=== PATIENT | male | born 1980 | race Caucasian/White ===

== ENCOUNTER 2018-04-03 12:12 | Emergency (ER) | payer OTHER, BC ==
[2018-04-03 12:33] VITALS: BP 141/115
--- NOTE | 2018-04-03 12:55 | EDM.PDOC ---
ED HPI GENERAL MEDICAL PROBLEM - General Chief Complaint: Upper Extremity Injury/Pain Stated Complaint: SHOULDER PAIN Time Seen by Provider: 04/03/18 12:30 Source of Information: Reports: Patient History Limitations: Reports: No Limitations - History of Present Illness INITIAL COMMENTS - FREE TEXT/NARRATIVE: 37 year old male presents for evaluation and treatment of right should pain. Initial injury occurred last week. Patient reports he was helping a coworker lift a heavy object when he developed pain to his right shoulder. He was seen by occupational health last week and Sunday. States he was told the pain was from his neck. He seen by a chiropractor yesterday. He has not had any imaging of his shoulder. Has been treating with Tylenol and Motrin. Patient reports last night he was lifting up his 5-year-old child when he heard a pop and a crunch in the right shoulder. He states he's been experiencing numbness in his hand and elbow. He is pain reporting pain primarily to his right shoulder. Denies any previous injury to his right shoulder. Review of the patient's records show he was seen about 4 years ago for a right shoulder injury and found to have a greater tuberosity fracture to the right proximal humerus. Duration: Week(s): (1) Location: Reports: Upper Extremity, Right Treatments INCIDENT ANALYST: Reports: Other (see below) Other Treatments INCIDENT ANALYST: tylenol Right Shoulder Pain Score (Numeric/FACES): 8 - Related Data Allergies Allergy/AdvReac Type Severity Reaction Status Date / Time No Known Allergies Allergy Verified 08/15/14 18:46 Home Meds: Home Meds Orphenadrine [Norflex] 100 mg PO BID PRN #20 tab 04/03/18 [Rx] Past Medical History - Past Health History Medical/Surgical History: Denies Medical/Surgical History Musculoskeletal History: Reports: Back Pain, Chronic, Fracture Other Musculoskeletal History: fractured shoulder and did not have surgery Psychiatric History: Reports: Anxiety Social & Family History - Family History Family Medical History: Noncontributory - Tobacco Use Smoking Status *Q: Current Every Day Smoker Years of Tobacco use: 15 Packs/Tins Daily: 0.2 - Caffeine Use Caffeine Use: Reports: None - Recreational Drug Use Recreational Drug Use: No Review of Systems - Review of Systems Review Of Systems: See Below Musculoskeletal: Reports: Shoulder Pain (right) Neurological: Reports: Numbness (right arm), Tingling (right arm) ED EXAM, GENERAL - Physical Exam Exam: See Below Exam Limited By: No Limitations General Appearance: Alert, WD/WN, No Apparent Distress Respiratory/Chest: No Respiratory Distress Cardiovascular: Normal Peripheral Pulses, Regular Rate, Rhythm Peripheral Pulses: 2+: Radial (L), Radial (R) Extremities: Normal Inspection (no obvious deformity, tenderness to palpation to the distal clavicle), Normal Capillary Refill, Limited Range of Motion ( unable to forward flex greater than 30 decress, unable to extend, unable to abduct more than 30 degrees; special testing deferred due to pain), Other ( tenderness to palpatino to the right distal clavicle and the proximal humerus; reports good sensation to light tought tothe right arm) Neurological: Alert, Oriented, Normal Cognition Psychiatric: Normal Affect, Normal Mood Skin Exam: Warm, Dry, Normal Color Course - Vital Signs Last Recorded V/S: Last Vital Signs Temp 97.6 F 04/03/18 12:31 Pulse 107 H 04/03/18 12:31 Resp 20 04/03/18 12:31 BP 141/115 H 04/03/18 12:31 Pulse Ox 97 04/03/18 12:31 - Orders/Labs/Meds Orders: Active Orders 24 hr Category Date Time Status Durable Medical Equipment for Discharge [DME for Oth 04/03/18 13:17 Ordered Discharge] [COMM] Stat - Radiology Interpretation Free Text/Narrative:: xray of the right shoulder shows no acute fractures or dislocations. Reviewed by myself and Dr. Tipton. Formal radiology read pending. - Re-Assessments/Exams Free Text/Narrative Re-Assessment/Exam: 04/03/18 13:12 Reviewed the xray results with the patient. Concern he may have a labrial tear or rotator cuff tear due to significant pain with ROM. Will place in a shoulder sling and have him follow-up with orthopedics. Discharge instructions as documented. Departure - Departure Time of Disposition: 13:19 Disposition: Home, Self-Care 01 Condition: Fair Clinical Impression: Shoulder injury - Discharge Information *PRESCRIPTION DRUG MONITORING PROGRAM REVIEWED*: No *COPY OF PRESCRIPTION DRUG MONITORING REPORT IN PATIENT JAIME: No Prescriptions: Orphenadrine [Norflex] 100 mg PO BID PRN #20 tab PRN Reason: Muscle Spasm Instructions: RICE for Routine Care of Injuries, [id number], Shoulder Pain, [id number] Referrals: PCP,None [Primary Care Provider] - Jason Chase MD [Physician] - Forms: ED Department Discharge, ED Return to Work/School Form Additional Instructions: OTC tylenol or motrin as needed for pain. Norflex 1 tab PO bid prn muscle pain and spasms. This medication may make you drowsy. Do not drive or operate machinery until you know how this medication will affect you. Follow-up with orthopedics this week or next week. Recommend Dr. Cahse. Call [phone] to schedule with him. Or Dr. Griffin, call [phone] to schedule with him. Should sling at all times. remove your arm from sling 3-4 times a day and preform pendulum arm circles to prevent frozen shoulder. Ice or heat to the shoulder as needed for additional pain relief. Please return to the ER should your symptoms change or worsen. - My Orders Last 24 Hours: My Active Orders 04/03/18 13:17 Durable Medical Equipment for Discharge [DME for Discharge] [COMM] Stat - Assessment/Plan Last 24 Hours: My Active Orders 04/03/18 13:17 Durable Medical Equipment for Discharge [DME for Discharge] [COMM] Stat
--- NOTE | 2018-04-03 14:15 | CR ---
Right shoulder: Three views of the right shoulder were obtained. Comparison: Prior right shoulder study of 06/11/14. Greater tuberosity is missing compatible with old fracture deformity. Glenohumeral joint is within normal limits. Joint space narrowing and inferior spurring is seen within the acromioclavicular joint. Inferior spurring is more prominent than on prior exam. No additional abnormality is noted. Impression: 1. Joint space narrowing and inferior spurring within the acromioclavicular joint. 2. Deformity of the greater tuberosity is missing compatible with old fracture deformity. Diagnostic code #3
== END 2018-04-03 13:41 | disposition home or self-care (01) ==
LOC: JD.ED 12:12
DX: S49.91XA Unspecified injury of right shoulder and upper arm, initial encounter (principal); F17.210 Nicotine dependence, cigarettes, uncomplicated; X50.0XXA Overexertion from strenuous movement or load, initial encounter; Y99.0 Civilian activity done for income or pay
CPT/HCPCS: 73030-26-RT; 73030-RT; 99283

== ENCOUNTER 2021-01-11 13:08 | Emergency (ER) | payer BC, OTHER ==
[2021-01-11] MEDS ORDERED: Metoclopramide 10 MG/2 ML SDV IVPUSH ONE (13:11)
[2021-01-11] MEDS ORDERED: fentaNYL 100 MCG/2 ML SDV IVPUSH ONE (13:11)
[2021-01-11] MEDS ORDERED: Dextrose 5%-0.9% NaCl 1,000 ML IV SCH (13:15)
[2021-01-11] MEDS ORDERED: Iopamidol 612 MG/ML 50 ML SDV IVPUSH ONE (13:17)
--- NOTE | 2021-01-11 13:17 | EDM.PDOC ---
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 they last longer than this or you have any problems with balance or blurred vision you should follow up with your primary care provider in a week's time. Sepsis Event Note (ED) - Focused Exam Vital Signs: Vital Signs Temp Pulse Resp BP Pulse Ox 01/12/21 07:13 97.4 F 94 16 136/74 93 L
[2021-01-11] MEDS ORDERED: Iopamidol 612 MG/ML 100 ML Bottle IVPUSH ONE (13:21)
[2021-01-11] MEDS ORDERED: Sodium Chloride 0.9% 10 ML Syringe FLUSH ONE (13:21)
--- NOTE | 2021-01-11 14:23 | CT ---
CT thoracic spine Technique: Multiple axial sections through the thoracic spine were obtained. Reconstructed coronal and sagittal images were obtained. Comparison: No prior thoracic spine imaging is available. Findings: Mild scattered disc space narrowing is noted within the thoracic spine. Minimal scattered endplate osteophytes are seen. Vertebral body heights are maintained. Mild scattered degenerative apophyseal change is seen. No fracture is seen. No bony central or bony neural foraminal stenosis is seen. Impression: 1. Mild degenerative change as noted above. 2. No acute fracture or abnormal subluxation is seen on CT study of the thoracic spine. Diagnostic code #2
--- NOTE | 2021-01-11 14:35 | CT ---
CT chest Technique: Multiple axial sections through the chest were obtained. Intravenous contrast was utilized. Mild artifact is noted from the patient's arm along his side. Comparison: Prior chest and right rib radiograph of 06/11/14. Findings: Thoracic aorta shows no aneurysm. Mediastinum shows no adenopathy. No pericardial thickening is seen. Lung window settings were reviewed which show no acute parenchymal change within either lung. No pleural effusions are seen. No pneumothorax is seen. Bone window settings were reviewed which show no acute osseous abnormality. Impression: 1. Nothing acute is seen on CT study of the chest. Diagnostic code #1 CT abdomen and pelvis Technique: Multiple axial sections were obtained from above the dome of the diaphragm inferiorly through the pubic symphysis. Intravenous contrast was utilized. No oral contrast has been given. Reconstructed coronal and sagittal images were obtained. Comparison: No prior CT abdomen or pelvis study is available. Findings: Liver shows no focal parenchymal abnormality. Spleen size is normal. Adrenal glands show no nodule. Pancreas shows no discrete abnormality. Kidneys show symmetric contrast enhancement with no hydronephrosis or mass. Gallbladder contains no calcified gallstones. Abdominal aorta shows no aneurysm. No retroperitoneal adenopathy is seen. No mesenteric abnormalities are seen. No pelvic mass or adenopathy is seen. No free fluid or inflammatory change is seen. Appendix is seen which is normal in size. Bone window settings were reviewed which show no acute osseous abnormality. Impression: 1. Nothing acute is seen on CT study of the abdomen and pelvis. Diagnostic code #1
--- NOTE | 2021-01-11 14:37 | CT ---
CT facial bones Technique: Multiple axial sections through the facial bones were obtained. Reconstructed coronal and sagittal images were obtained. Findings: Diffuse opacification of the frontal sinuses is seen. Diffuse opacification of the majority of the ethmoid sinuses and both maxillary sinuses is seen. Sphenoid sinus appears clear. No fluid is seen within the paranasal sinuses. No acute facial bone fracture is seen. Impression: 1. Findings compatible with diffuse chronic appearing sinusitis. 2. No acute fracture is seen on CT study of the facial bones. Diagnostic code #3
--- NOTE | 2021-01-11 14:42 | CT ---
CT lumbar spine Technique: Multiple axial sections were obtained through the lumbar spine. Reconstructed coronal and sagittal images were obtained. Comparison: Prior lumbar spine CT study of 08/15/14. Findings: Anterior wedge deformity is seen within the superior vertebral body of L3 which appears old. Mild scattered posterior disc space narrowing is noted. Mild degenerative change is seen within the L5-S1 apophyseal joints. No bony central canal stenosis is seen. Neural foramina are felt to be fairly well patent. Slight vacuum phenomena is seen within the L5-S1 disc. No fracture is seen. No abnormal subluxation is seen. Impression: 1. Mild degenerative change as noted above. Anterior wedge deformity within the superior L3 vertebral body which is old. 2. No acute fracture or abnormal subluxation is seen. Diagnostic code #2
--- NOTE | 2021-01-11 14:46 | CT ---
Head CT Technique: Multiple axial sections through the brain were obtained. Intravenous contrast was not utilized. Reconstructed coronal and sagittal images were obtained. Comparison: No prior intracranial imaging is available. Findings: Diffuse mucosal thickening is seen within the paranasal sinuses as described on facial bone exam. Slight basal ganglia calcification is noted. Small area of hemorrhage is seen within the right upper anterior parietal region which measures about 9 mm. Small calcification is seen along the interhemispheric falx which is old. No other areas of abnormal hemorrhage are seen. No midline shift or mass-effect is seen. Bone window settings were reviewed. Mild mucosal thickening is seen within the inferior right mastoid sinus. Left mastoid sinus is clear. Diffuse mucosal thickening within the paranasal sinuses are noted. No acute calvarial abnormality is appreciated. Scalp lesion is noted within the left parietal region measuring 1.6 cm which is believed to be benign. Impression: 1. Small hemorrhage within the upper right anterior parietal region. This measures about 9 mm in size. No other findings of intracranial hemorrhage are seen. 2. Paranasal sinus findings which are likely chronic. Mastoid sinus findings on the right side which are likely chronic. 3. Basal ganglia calcification is seen. Diagnostic code #3
--- NOTE | 2021-01-11 15:14 | CT ---
CT cervical spine Technique: Multiple axial sections were obtained from above C1 inferiorly to the bottom of T3. Reconstructed coronal and sagittal images were obtained. Comparison: No prior cervical spine imaging is available. Findings: Vertebral body heights are maintained. No bony central or bony neural foraminal stenosis is seen. Slight degenerative change is noted between the dens and anterior arch of C1. No fracture is seen. No abnormal subluxation is seen. Impression: 1. Minimal degenerative change. 2. No acute fracture or subluxation is seen on CT study of the cervical spine. Diagnostic code #2
[2021-01-11] MEDS ORDERED: Sodium Chloride 0.9% 10 ML Syringe FLUSH PRN (20:44)
[2021-01-11] MEDS ORDERED: LORazepam 2 MG/ML SDV IVPUSH ONE (22:30)
--- NOTE | 2021-01-12 11:29 | CT ---
Head CT Technique: Multiple axial sections through the brain were obtained. Intravenous contrast was utilized. Reconstructed coronal and sagittal images were obtained. Comparison: Prior head CT study of 01/11/21. Findings: Small area of hemorrhage is seen within the upper right anterior parietal region. This is slightly decreased in size from prior exam. Stable basal ganglia calcification is noted. Stable extradural calcification is seen along the interhemispheric falx. No other intracranial hemorrhage is seen. Diffuse mucosal thickening is seen within the paranasal sinuses. Scalp lesion is noted on the left side which is stable. Bone window settings were reviewed which show no acute calvarial abnormality. Minimal mucosal thickening is seen within the inferior right mastoid sinus. Impression: 1. Sinus findings which are stable as described above. 2. Slightly smaller hemorrhage within the upper right anterior parietal region. 3. Other stable findings as noted above. No other acute hemorrhage is seen. Diagnostic code #3
[2021-01-12 12:02] VITALS: BP 141/96; PULSE 97
== END 2021-01-12 12:00 | disposition home or self-care (01) ==
LOC: JD.ED 13:08
DX: S06.301A Unspecified focal traumatic brain injury with loss of consciousness of 30 minutes or less, initial encounter (principal); S13.4XXA Sprain of ligaments of cervical spine, initial encounter; S05.11XA Contusion of eyeball and orbital tissues, right eye, initial encounter; S00.11XA Contusion of right eyelid and periocular area, initial encounter; R94.31 Abnormal electrocardiogram [ECG] [EKG]; Z20.822 Contact with and (suspected) exposure to COVID-19; V29.9XXA Motorcycle rider (driver) (passenger) injured in unspecified traffic accident, initial encounter; Y92.410 Unspecified street and highway as the place of occurrence of the external cause
CPT/HCPCS: 36415; 70450; 70450-26; 70486; 70486-26; 71260; 71260-26; 72125; 72125-26; 72128; 72128-26; 72131; 72131-26; 74177; 74177-26; 80053; 80306; 80307; 82550; 83690; 83735; 85025; 85610; 85730; 86140; 93005; 93010; 96374; 96375; 99285; 99285-25; J2060; J2765; J3010; J7042; Q9967; U0002

== ENCOUNTER 2022-02-27 12:23 | Emergency (ER) | payer SELFPAY ==
[2022-02-27 13:35] LABS: CORONAVIRUS COVID-19 NAA NEGATIVE (NEGATIVE)
[2022-02-27 14:55] VITALS: BP 144/103; PULSE 88
== END 2022-02-27 14:55 | disposition home or self-care (01) ==
LOC: JD.ED 12:23
DX: J01.90 Acute sinusitis, unspecified (principal); Z20.822 Contact with and (suspected) exposure to COVID-19
CPT/HCPCS: 0241U; 99283

== ENCOUNTER 2022-08-17 16:02 | Emergency (ER) | payer SELFPAY ==
[2022-08-17 16:17] VITALS: BP 135/86; PULSE 109
[2022-08-17] MEDS ORDERED: Sodium Chloride 0.9% 10 ML Syringe FLUSH PRN (16:37)
[2022-08-17] MEDS ORDERED: Sodium Chloride 0.9% 1,000 ML IV SCH (16:45)
[2022-08-17 17:15] LABS: BASOPHILS ABSOLUTE AUTO 0.05 K/mm3 (0.01-0.08); BASOPHILS PERCENT AUTO 0.6 % (0.1-1.2); EOSINOPHILS ABSOLUTE AUTO 0.03 K/mm3 (0.04-0.54); EOSINOPHILS PERCENT AUTO 0.4 (0.8-7.0); HEMATOCRIT 46.1 % (40.1-51.0); IMMATURE GRAN ABSOLUTE AUTO 0.03 K/mm3 (0.00-0.10); IMMATURE GRAN PERCENT AUTO 0.4 % (<=1.0); LYMPHOCYTES ABSOLUTE AUTO 1.89 K/mm3 (1.32-3.57); LYMPHOCYTES PERCENT AUTO 24.3 % (21.8-53.1); MEAN CORPUSCULAR HGB CONC 34.7 g/dl (32.2-35.5); MEAN CORPUSCULAR VOLUME 89.3 fl (79.0-92.2); MEAN PLATELET VOLUME 10.6 fl (9.4-12.3); MONOCYTES ABSOLUTE AUTO 0.56 K/mm3 (0.30-0.82); MONOCYTES PERCENT AUTO 7.2 % (5.3-12.2); NEUTROPHILS ABSOLUTE AUTO 5.23 K/mm3 (1.78-5.38); NEUTROPHILS PERCENT AUTO 67.1 % (34.0-67.9); PLATELET COUNT,PLT 324 K/mm3 (163-337); RED BLOOD CELL COUNT 5.16 M/mm3 (4.63-6.08); WHITE BLOOD CELL COUNT,WBC 7.79 K/mm3 (4.23-9.07)
[2022-08-17 17:35] LABS: A/G RATIO 0.8 (1-2); ALBUMIN 3.5 g/dl (3.4-5.0); ANION GAP 15.1 (5-15); BILIRUBIN TOTAL 0.4 mg/dL (0.2-1.0); BUN/CREATININE RATIO 8.2 (14-18); CREATININE 1.1 mg/dL (0.7-1.3); EST CRCL DRUG DOSING (CG) 81.79 mL/min; ETHANOL BLOOD MEDICAL 0.31 gm% (0.00); POTASSIUM,K 4.1 mEq/L (3.5-5.1); PROTEIN TOTAL,TP 7.9 g/dl (6.4-8.2)
== END 2022-08-17 17:15 | disposition left against medical advice (07) ==
LOC: JD.ED 16:02
DX: S00.01XA Abrasion of scalp, initial encounter (principal); F10.920 Alcohol use, unspecified with intoxication, uncomplicated; W19.XXXA Unspecified fall, initial encounter; Y90.1 Blood alcohol level of 20-39 mg/100 ml
CPT/HCPCS: 36415; 80053; 80307; 85025; 99283; 99284

== ENCOUNTER 2023-09-12 04:57 | Emergency (ER) | payer SELFPAY ==
[2023-09-12] MEDS: QUEtiapine 25 MG Tab PO ONE (05:26)
[2023-09-12 05:29] LABS: BASOPHILS ABSOLUTE AUTO 0.1 K/mm3 (0.0-0.2); BASOPHILS PERCENT AUTO 0.7 % (0.0-1.0); EOSINOPHILS ABSOLUTE AUTO 0.1 K/mm3 (0.0-0.4); EOSINOPHILS PERCENT AUTO 1.1 % (0.0-6.0); HEMATOCRIT 41.8 % (42.0-52.0); HEMOGLOBIN 15.3 gm/dl (14.0-18.0); IMMATURE GRAN ABSOLUTE AUTO 0.03 K/mm3 (0.00-0.05); IMMATURE GRAN PERCENT AUTO 0.4 % (0.0-0.4); LYMPHOCYTES ABSOLUTE AUTO 1.7 K/mm3 (1.0-4.8); LYMPHOCYTES PERCENT AUTO 23.8 % (24.0-44.0); MEAN CORPUSCULAR HEMOGLOBIN 32.1 pg (28.0-32.0); MEAN CORPUSCULAR HGB CONC 36.6 g/dl (32.0-36.0); MEAN CORPUSCULAR VOLUME 87.6 fl (83.0-99.0); MEAN PLATELET VOLUME 10.7 fl (9.4-12.4); MONOCYTES ABSOLUTE AUTO 0.8 K/mm3 (0.0-0.8); MONOCYTES PERCENT AUTO 11.4 % (0.0-8.0); NEUTROPHILS ABSOLUTE AUTO 4.5 K/mm3 (1.8-7.7); NEUTROPHILS PERCENT AUTO 62.6 % (41.0-71.0); PLATELET COUNT,PLT 168 K/mm3 (150-400); RED BLOOD CELL COUNT 4.77 M/mm3 (4.52-5.90); WHITE BLOOD CELL COUNT,WBC 7.19 K/mm3 (3.9-11.3)
[2023-09-12 05:56] LABS: BARBITURATE SCREEN,URINE NEGATIVE (CUTOFF=200); BENZODIAZEPINES SCREEN,URINE NEGATIVE (CUTOFF=150); BUPRENORPHINE SCREEN,URINE NEGATIVE (CUTOFF=10); METHADONE SCREEN, URINE NEGATIVE (CUT0FF=200); METHAMPHETAMINES SCREEN, URINE NEGATIVE (CUTOFF=500); OXYCODONE SCREEN,URINE NEGATIVE (CUT0FF=100); THC SCREEN,URINE 20 NG/ML NEGATIVE (CUTOFF=50)
[2023-09-12 05:58] LABS: AMPHETAMINES SCREEN, URINE NEGATIVE (CUTOFF=500)
[2023-09-12 06:07] LABS: A/G RATIO 0.9 (1-2); ALBUMIN 3.8 g/dl (3.4-5.0); ANION GAP 16.5 (5-15); BILIRUBIN TOTAL 0.7 mg/dL (0.2-1.0); BUN/CREATININE RATIO 15.5 (14-18); CALCIUM 9.6 mg/dL (8.5-10.1); CREATININE 1.1 mg/dL (0.7-1.3); EST CRCL DRUG DOSING (CG) 80.96 mL/min; POTASSIUM,K 3.5 mEq/L (3.5-5.1); PROTEIN TOTAL,TP 8.2 g/dl (6.4-8.2); TSH 1.971 uIU/mL (0.358-3.74)
[2023-09-12 10:34] VITALS: BP 127/99; PULSE 101
== END 2023-09-12 10:12 | disposition home or self-care (01) ==
LOC: JD.ED 04:57
DX: R44.1 Visual hallucinations (principal); R44.0 Auditory hallucinations; F17.210 Nicotine dependence, cigarettes, uncomplicated
CPT/HCPCS: 36415; 80053; 80143; 80179; 80306; 80307; 84443; 85025; 99285; A9270; 99283

== ENCOUNTER 2024-06-29 16:06 | Day surgery (SDC) | payer BC ==
[2024-06-29 16:44] LABS: BASOPHILS ABSOLUTE AUTO 0.1 K/mm3 (0.0-0.2); BASOPHILS PERCENT AUTO 0.9 % (0.0-1.0); EOSINOPHILS ABSOLUTE AUTO 0.1 K/mm3 (0.0-0.4); EOSINOPHILS PERCENT AUTO 0.9 % (0.0-6.0); HEMATOCRIT 45.7 % (42.0-52.0); HEMOGLOBIN 16.1 gm/dl (14.0-18.0); IMMATURE GRAN ABSOLUTE AUTO 0.05 K/mm3 (0.00-0.05); IMMATURE GRAN PERCENT AUTO 0.5 % (0.0-0.4); LYMPHOCYTES ABSOLUTE AUTO 2.5 K/mm3 (1.0-4.8); LYMPHOCYTES PERCENT AUTO 25.1 % (24.0-44.0); MEAN CORPUSCULAR HEMOGLOBIN 31.8 pg (28.0-32.0); MEAN CORPUSCULAR HGB CONC 35.2 g/dl (32.0-36.0); MEAN CORPUSCULAR VOLUME 90.1 fl (83.0-99.0); MEAN PLATELET VOLUME 10.2 fl (9.4-12.4); MONOCYTES ABSOLUTE AUTO 0.7 K/mm3 (0.0-0.8); MONOCYTES PERCENT AUTO 6.6 % (0.0-8.0); NEUTROPHILS ABSOLUTE AUTO 6.6 K/mm3 (1.8-7.7); RED BLOOD CELL COUNT 5.07 M/mm3 (4.52-5.90); WHITE BLOOD CELL COUNT,WBC 10.03 K/mm3 (3.9-11.3)
[2024-06-29 16:48] LABS: PLATELET COUNT,PLT 253 K/mm3 (150-400)
[2024-06-29 17:12] LABS: A/G RATIO 0.8 (1-2); ALBUMIN 3.7 g/dl (3.4-5.0); ANION GAP 15.5 (5-15); BILIRUBIN TOTAL 0.4 mg/dL (0.2-1.0); BUN/CREATININE RATIO 6.9 (14-18); C-REACTIVE PROTEIN 0.18 mg/dL (<0.30); CALCIUM 8.6 mg/dL (8.5-10.1); CREATININE 1.3 mg/dL (0.7-1.3); EST CRCL DRUG DOSING (CG) 67.79 mL/min; POTASSIUM,K 3.5 mEq/L (3.5-5.1); PROTEIN TOTAL,TP 8.3 g/dl (6.4-8.2)
[2024-06-29] MEDS: LORazepam 2 MG/ML SDV IVPUSH ONE (17:46)
[2024-06-29] MEDS: Glucagon,Human Recombinant 1 MG Vial IVPUSH ONE (17:47)
[2024-06-29] MEDS: Sodium Chloride 0.9% 1,000 ML IV STA (18:39)
[2024-06-29] MEDS ORDERED: Sodium Chloride 0.9% 10 ML Syringe FLUSH PRN (18:52)
[2024-06-29] MEDS: Albuterol/Ipratropium 3.0-0.5 MG/3 ML Neb Soln NEB ONE (18:54)
[2024-06-29] MEDS ORDERED: propofoL 500 MG/50 ML 50 ML ONE (18:56)
[2024-06-29] MEDS: Albuterol/Ipratropium 3.0-0.5 MG/3 ML Neb Soln ONE (18:57)
[2024-06-29] MEDS ORDERED: fentaNYL 100 MCG/2 ML SDV ONE (18:57)
[2024-06-29] MEDS ORDERED: Lactated Ringers 1,000 ML IV ONE (18:57)
[2024-06-29] MEDS ORDERED: Midazolam 1 MG/ML 2 ML SDV ONE (18:57)
[2024-06-29] MEDS ORDERED: Lactated Ringers 1,000 ML IV SCH (19:00)
[2024-06-29] MEDS ORDERED: Succinylcholine 200 MG/10 ML MDV ONE (19:03)
[2024-06-29] MEDS ORDERED: Lidocaine 2% 5 ML SDV ONE (19:03)
[2024-06-29] MEDS ORDERED: Rocuronium 50 MG/5 ML Vial ONE (19:03)
[2024-06-29] MEDS ORDERED: Esmolol 100 MG/10 ML SDV ONE (19:21)
[2024-06-29] MEDS ORDERED: Sugammadex Sodium 200 MG/2 ML VIAL IV ONE (19:33)
[2024-06-29] MEDS ORDERED: Ondansetron 4 MG/2 ML SDV IVPUSH PRN (20:03)
[2024-06-29] MEDS ORDERED: fentaNYL 100 MCG/2 ML SDV IVPUSH PRN (20:03)
[2024-06-29] MEDS ORDERED: HYDROmorphone 0.5 MG/0.5 ML Syringe IVPUSH PRN (20:03)
[2024-06-29 20:46] VITALS: BP 130/98; PULSE 99
== END 2024-06-29 20:56 | disposition home or self-care (01) ==
LOC: JD.ED 16:06 → JD.SDS 18:56
PROVIDERS: ATTEND Surgery
DX: K22.10 Ulcer of esophagus without bleeding (principal); T18.128A Food in esophagus causing other injury, initial encounter; F17.210 Nicotine dependence, cigarettes, uncomplicated; Z79.899 Other long term (current) drug therapy
CPT/HCPCS: 00731; 36415; 71046; 71046-26; 80053; 80307; 83690; 84484; 85025; 86140; 94640; 96361; 96374; 96375; 99140; 99285; 99285-25; A9270-GY; J0330; J1610; J1805; J2003; J2060; J2250; J2704; J3010; J3490; J7030; J7120

== ENCOUNTER 2024-09-19 00:22 | Emergency (ER) | payer BC ==
[2024-09-19 00:35] VITALS: BP 184/131; PULSE 120
[2024-09-19] MEDS ORDERED: Sodium Chloride 0.9% 10 ML Syringe FLUSH PRN (01:46)
[2024-09-19 02:26] LABS: BASOPHILS ABSOLUTE AUTO 0.1 K/mm3 (0.0-0.2); BASOPHILS PERCENT AUTO 0.9 % (0.0-1.0); EOSINOPHILS ABSOLUTE AUTO 0.1 K/mm3 (0.0-0.4); EOSINOPHILS PERCENT AUTO 0.7 % (0.0-6.0); IMMATURE GRAN ABSOLUTE AUTO 0.04 K/mm3 (0.00-0.05); IMMATURE GRAN PERCENT AUTO 0.4 % (0.0-0.4); LYMPHOCYTES ABSOLUTE AUTO 3.5 K/mm3 (1.0-4.8); LYMPHOCYTES PERCENT AUTO 32.2 % (24.0-44.0); MEAN PLATELET VOLUME 9.8 fl (9.4-12.4); MONOCYTES ABSOLUTE AUTO 0.7 K/mm3 (0.0-0.8); MONOCYTES PERCENT AUTO 6.0 % (0.0-8.0); NEUTROPHILS ABSOLUTE AUTO 6.5 K/mm3 (1.8-7.7); NEUTROPHILS PERCENT AUTO 59.8 % (41.0-71.0); NRBC ABSOLUTE 0.00 (0.00-0.02); NRBC PERCENT 0.0 % (0.0-0.2); PLATELET COUNT,PLT 324 K/mm3 (150-400); RED BLOOD CELL COUNT 5.50 M/mm3 (4.52-5.90); WHITE BLOOD CELL COUNT,WBC 10.89 K/mm3 (3.9-11.3)
[2024-09-19 02:47] LABS: A/G RATIO 0.8 (1-2); ALANINE AMINOTRANSFERASE,ALT 126.0 U/L (16-63); ASPARTATE AMNIOTRANSFERASE,AST 126.0 U/L (15-37); BILIRUBIN TOTAL 0.6 mg/dL (0.2-1.0); BLOOD UREA NITROGEN,BUN 15.0 mg/dL (7-18); CARBON DIOXIDE,CO2 22.0 mEq/L (21-32); CHLORIDE,CL 95.0 mEq/L (98-107); CREATININE 0.9 mg/dL (0.7-1.3); EST CRCL DRUG DOSING (CG) 96.91 mL/min; ESTIMATED GFR 107.0 mL/min (>60); GLUCOSE RANDOM 92.0 mg/dL (70-99); POTASSIUM,K 4.1 mEq/L (3.5-5.1); PROTEIN TOTAL,TP 8.8 g/dl (6.4-8.2); SODIUM,NA 138.0 mEq/L (136-145)
[2024-09-19 03:05] LABS: BUPRENORPHINE SCREEN,URINE NEGATIVE (CUTOFF=10); METHADONE SCREEN, URINE NEGATIVE (CUT0FF=200); METHAMPHETAMINES SCREEN, URINE NEGATIVE (CUTOFF=500); OXYCODONE SCREEN,URINE NEGATIVE (CUT0FF=100); THC SCREEN,URINE 20 NG/ML NEGATIVE (CUTOFF=50)
[2024-09-19 03:39] LABS: AMPHETAMINES SCREEN, URINE NEGATIVE (CUTOFF=500)
== END 2024-09-19 04:35 | disposition home or self-care (01) ==
LOC: JD.ED 00:22
DX: F10.90 Alcohol use, unspecified, uncomplicated (principal); M19.90 Unspecified osteoarthritis, unspecified site; Z79.899 Other long term (current) drug therapy
CPT/HCPCS: 36415; 80053; 80306; 80307; 83735; 85025; 99283; 99284

== ENCOUNTER 2024-09-24 00:44 | Emergency (ER) | payer BC ==
[2024-09-24 01:14] LABS: BASOPHILS ABSOLUTE AUTO 0.0 K/mm3 (0.0-0.2); BASOPHILS PERCENT AUTO 0.3 % (0.0-1.0); EOSINOPHILS ABSOLUTE AUTO 0.0 K/mm3 (0.0-0.4); EOSINOPHILS PERCENT AUTO 0.2 % (0.0-6.0); IMMATURE GRAN ABSOLUTE AUTO 0.04 K/mm3 (0.00-0.05); IMMATURE GRAN PERCENT AUTO 0.7 % (0.0-0.4); LYMPHOCYTES ABSOLUTE AUTO 0.4 K/mm3 (1.0-4.8); LYMPHOCYTES PERCENT AUTO 7.4 % (24.0-44.0); MEAN PLATELET VOLUME 10.8 fl (9.4-12.4); MONOCYTES ABSOLUTE AUTO 0.2 K/mm3 (0.0-0.8); MONOCYTES PERCENT AUTO 2.5 % (0.0-8.0); NEUTROPHILS ABSOLUTE AUTO 5.3 K/mm3 (1.8-7.7); NEUTROPHILS PERCENT AUTO 88.9 % (41.0-71.0); NRBC ABSOLUTE 0.00 (0.00-0.02); NRBC PERCENT 0.0 % (0.0-0.2); PLATELET COUNT,PLT 128 K/mm3 (150-400); RED BLOOD CELL COUNT 3.59 M/mm3 (4.52-5.90); WHITE BLOOD CELL COUNT,WBC 5.94 K/mm3 (3.9-11.3)
[2024-09-24 01:25] LABS: BUPRENORPHINE SCREEN,URINE NEGATIVE (CUTOFF=10); METHADONE SCREEN, URINE NEGATIVE (CUT0FF=200); METHAMPHETAMINES SCREEN, URINE NEGATIVE (CUTOFF=500); OXYCODONE SCREEN,URINE NEGATIVE (CUT0FF=100); THC SCREEN,URINE 20 NG/ML NEGATIVE (CUTOFF=50)
[2024-09-24 01:32] LABS: AMPHETAMINES SCREEN, URINE NEGATIVE (CUTOFF=500)
[2024-09-24 01:48] LABS: A/G RATIO 1.0 (1-2); ALANINE AMINOTRANSFERASE,ALT 86.0 U/L (16-63); ASPARTATE AMNIOTRANSFERASE,AST 105.0 U/L (15-37); BILIRUBIN TOTAL 0.9 mg/dL (0.2-1.0); BLOOD UREA NITROGEN,BUN 28.0 mg/dL (7-18); CARBON DIOXIDE,CO2 29.0 mEq/L (21-32); CHLORIDE,CL 89.0 mEq/L (98-107); CREATININE 1.0 mg/dL (0.7-1.3); EST CRCL DRUG DOSING (CG) 81.15 mL/min; ESTIMATED GFR 95.0 mL/min (>60); GLUCOSE RANDOM 226.0 mg/dL (70-99); POTASSIUM,K 3.4 mEq/L (3.5-5.1); PROTEIN TOTAL,TP 7.9 g/dl (6.4-8.2); SODIUM,NA 129.0 mEq/L (136-145); TSH 4.012 uIU/mL (0.358-3.74)
[2024-09-24 01:51] LABS: ETHANOL BLOOD MEDICAL 0.0 gm% (0.00)
[2024-09-24 02:04] VITALS: BP 130/85; PULSE 95
== END 2024-09-24 02:04 | disposition home or self-care (01) ==
LOC: MERGE 00:44 → JD.ED 00:44
DX: R44.0 Auditory hallucinations (principal); R44.2 Other hallucinations
CPT/HCPCS: 36415; 80053; 80143; 80179; 80306; 80307; 84443; 85025; 99283; 99284

== ENCOUNTER 2024-11-16 21:35 | Emergency (ER) | payer BC ==
[2024-11-16] MEDS ORDERED: Sodium Chloride 0.9% 10 ML Syringe FLUSH PRN (22:01)
[2024-11-16 22:13] LABS: BASOPHILS ABSOLUTE AUTO 0.1 K/mm3 (0.0-0.2); BASOPHILS PERCENT AUTO 1.3 % (0.0-1.0); EOSINOPHILS ABSOLUTE AUTO 0.1 K/mm3 (0.0-0.4); EOSINOPHILS PERCENT AUTO 0.8 % (0.0-6.0); IMMATURE GRAN ABSOLUTE AUTO 0.02 K/mm3 (0.00-0.05); IMMATURE GRAN PERCENT AUTO 0.2 % (0.0-0.4); LYMPHOCYTES ABSOLUTE AUTO 3.9 K/mm3 (1.0-4.8); LYMPHOCYTES PERCENT AUTO 45.7 % (24.0-44.0); MEAN PLATELET VOLUME 9.4 fl (9.4-12.4); MONOCYTES ABSOLUTE AUTO 0.5 K/mm3 (0.0-0.8); MONOCYTES PERCENT AUTO 6.3 % (0.0-8.0); NEUTROPHILS ABSOLUTE AUTO 3.9 K/mm3 (1.8-7.7); NEUTROPHILS PERCENT AUTO 45.7 % (41.0-71.0); NRBC ABSOLUTE 0.00 (0.00-0.02); NRBC PERCENT 0.0 % (0.0-0.2); PLATELET COUNT,PLT 358 K/mm3 (150-400); RED BLOOD CELL COUNT 5.50 M/mm3 (4.52-5.90); WHITE BLOOD CELL COUNT,WBC 8.54 K/mm3 (3.9-11.3)
[2024-11-16 22:14] LABS: APPEARANCE,URINE CLEAR (Clear); GLUCOSE,URINE NEGATIVE (Negative); OCCULT BLOOD,URINE TRACE-INTACT (Negative)
[2024-11-16 22:23] LABS: BUPRENORPHINE SCREEN,URINE NEGATIVE (CUTOFF=10); METHADONE SCREEN, URINE NEGATIVE (CUT0FF=200); METHAMPHETAMINES SCREEN, URINE NEGATIVE (CUTOFF=500); OXYCODONE SCREEN,URINE NEGATIVE (CUT0FF=100); THC SCREEN,URINE 20 NG/ML NEGATIVE (CUTOFF=50)
[2024-11-16 22:24] LABS: AMPHETAMINES SCREEN, URINE NEGATIVE (CUTOFF=500)
[2024-11-16 22:28] LABS: EPITHELIAL CELLS,URINE NOT SEEN /hpf (0-5)
[2024-11-16 22:39] LABS: A/G RATIO 0.7 (1-2); ALANINE AMINOTRANSFERASE,ALT 116.0 U/L (16-63); ASPARTATE AMNIOTRANSFERASE,AST 150.0 U/L (15-37); BILIRUBIN TOTAL 0.4 mg/dL (0.2-1.0); BLOOD UREA NITROGEN,BUN 10.0 mg/dL (7-18); CARBON DIOXIDE,CO2 26.0 mEq/L (21-32); CHLORIDE,CL 101.0 mEq/L (98-107); CREATININE 1.0 mg/dL (0.7-1.3); EST CRCL DRUG DOSING (CG) 87.22 mL/min; ESTIMATED GFR 95.0 mL/min (>60); ETHANOL BLOOD MEDICAL 0.39 gm% (0.00); GLUCOSE RANDOM 144.0 mg/dL (70-99); POTASSIUM,K 3.4 mEq/L (3.5-5.1); PROTEIN TOTAL,TP 9.1 g/dl (6.4-8.2); SODIUM,NA 140.0 mEq/L (136-145); TROPONIN I HIGH SENSITIVITY 10.0 pg/mL (<=76)
[2024-11-17] VITALS: BP 142/85; PULSE 88
[2024-11-17] MEDS: LORazepam 2 MG/ML SDV IVPUSH ONE (00:01)
== END 2024-11-16 23:58 | disposition home or self-care (01) ==
LOC: JD.ED 21:35
DX: F10.90 Alcohol use, unspecified, uncomplicated (principal); Y90.9 Presence of alcohol in blood, level not specified
CPT/HCPCS: 36415; 80053; 80306; 80307; 81001; 83735; 84484; 85025; 99284